=== PATIENT | male | born 1950 | race Caucasian/White ===

== ENCOUNTER 2017-05-25 10:10 | Observation (INO) | payer OTHER ==
[2017-05-25] VITALS (11 sets, daily range): BP systolic 133–181; BP diastolic 67–82; PULSE 66–88; RESP 16–18; TEMP 98.7–99.1; O2SAT 95–98
[~2017-05-25] VITALS: Ht 165.1 cm; Wt 68.0 kg
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
[2017-05-25 11:09] LABS: AUTOMATED NEUTROPHIL # 2.6 TH/MM3 (1.8-7.7); BASOPHIL % 1.2 % (0.0-2.0); EOSINOPHIL # 0.1 TH/MM3 (0-0.4); EOSINOPHIL % 3.3 % (0.0-4.0); HEMATOCRIT 40.3 % (39.0-51.0); LYMPH % 22.6 % (9.0-44.0); LYMPHOCYTE # 0.9 TH/MM3 (1.0-4.8); MEAN CELL VOLUME 91.9 FL (80.0-100.0); MEAN CORPUSCULAR HEMOGLOBIN 31.9 PG (27.0-34.0); MEAN CORPUSCULAR HGB CONC 34.7 % (32.0-36.0); MEAN PLATELET VOLUME 8.3 FL (7.0-11.0); MONO % 9.7 % (0.0-8.0); MONOCYTE # 0.4 TH/MM3 (0-0.9); NEUT % 63.2 % (16.0-70.0); PLATELET COUNT 171 TH/MM3 (150-450); RED BLOOD COUNT 4.38 MIL/MM3 (4.50-5.90); RED CELL DISTRIBUTION WIDTH 12.7 % (11.6-17.2); WHITE BLOOD COUNT 4.1 TH/MM3 (4.0-11.0)
[2017-05-25] MEDS ORDERED: BLOOD PRESSURE (11:09)
[2017-05-25 11:22] LABS: PROTHROMBIN TIME - PATIENT 10.1 SEC (9.8-11.6)
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
[2017-05-25 11:35] LABS: ALBUMIN 3.8 GM/DL (3.4-5.0); ALT (GPT) 17 U/L (12-78); AST (GOT) 17 U/L (15-37); BICARBONATE 22.8 MEQ/L (21.0-32.0); BLOOD UREA NITROGEN 23 MG/DL (7-18); CALCIUM 8.8 MG/DL (8.5-10.1); CHLORIDE 106 MEQ/L (98-107); CREATININE 1.05 MG/DL (0.60-1.30); GLOMERULAR FILTRATION RATE 70 ML/MIN (>89); GLUCOSE,RANDOM 105 MG/DL (74-106); MAGNESIUM 1.9 MG/DL (1.5-2.5); SODIUM (NA) 138 MEQ/L (136-145)
[2017-05-25 11:39] LABS: ALKALINE PHOSPHATASE 63 U/L (45-117); TOTAL BILIRUBIN ADULT 0.8 MG/DL (0.2-1.0); TOTAL PROTEIN 7.4 GM/DL (6.4-8.2); TROPONIN I LESS THAN 0.02 NG/ML (0.02-0.05)
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
[2017-05-25] MEDS ORDERED: GADODIAMIDE PF 287 MG/ML 5 ML VIAL (for RAD MRI) IVCONTRAST ONE (12:53)
[2017-05-25] MEDS ORDERED: SODIUM CHLORIDE 0.9% FLUSH 10 ML FLUSH IV FLUSH PRN (13:00)
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
--- NOTE | 2017-05-25 15:28 | RADRPT ---
EXAM DATE/TIME: 05/25/2017 14:14 [facility] COMPARISON: No previous studies available for comparison. INDICATIONS : Syncope. MEDICAL HISTORY : Hypertension. SURGICAL HISTORY : None. ENCOUNTER: Initial ACUITY: 1 day PAIN SCORE: 0/10 LOCATION: Bilateral neck PEAK SYSTOLIC VELOCITIES (cm/sec): ICA/CCA RATIO: Right: 1.0 Left: 0.9 ICA: Right: 73.7 Left: 68.6 CCA: Right: 75.7 Left: 74.2 ECA: Right: 97.1 Left: 96.9 VERTEBRAL: Right: 69.4 antegrade Left: 58.9 antegrade Elevated flow velocities and ICA/CCA ratios have been found to correlate with increased degrees of vessel stenosis, calculated as percentage of diameter relative to a normal segment of distal ICA/CCA FINDINGS: RIGHT CAROTID: Dense atherosclerotic calcification in the carotid bulb. The waveforms are within normal limits. LEFT CAROTID: Dense atherosclerotic calcification in the carotid bulb. The waveforms are within normal limits. VERTEBRAL ARTERIES: Antegrade flow is seen in both vertebral arteries. MISCELLANEOUS: None. CONCLUSION: 1. Dense sclerotic calcification in both carotid bulbs. 2. However, no sonographic or Doppler findings of a hemodynamically significant stenosis. Antegrade f low in both vertebral arteries. Horacio Og MD on May 25, 2017 at 15:23 Board Certified Radiologist. This report was verified electronically.
[2017-05-25] MEDS ORDERED: cloNIDine HCL 0.1 MG TAB PO PRN (17:00)
[2017-05-25] MEDS: SODIUM CHLOR 0.9% 1000 ML INJ 1,000 ML IV SCH (18:05)
[2017-05-25 20:10] LABS: FOLATE 18.3 NG/ML (3.1-17.5); FREE T4 1.18 NG/DL (0.76-1.46)
[2017-05-25] MEDS: SODIUM CHLORIDE 0.9% FLUSH 10 ML FLUSH IV FLUSH SCH (21:00)
--- NOTE | 2017-05-25 22:24 | RADRPT ---
EXAM DATE/TIME: 05/25/2017 21:36 [facility] COMPARISON: No previous studies available for comparison. INDICATIONS : CVA. MEDICAL HISTORY : None. SURGICAL HISTORY : Lip sx to remove tumor. ENCOUNTER: Initial ACUITY: 1 day PAIN SCORE: 1/10 LOCATION: Bilateral cranial Please note a normal MRA of the brain does not entirely exclude the possibility of a small aneurysm, nor the possibility of distal intracranial vessel disease. TECHNIQUE: 3D time of flight MRA was performed. Source images, multiplanar STS MIP, and 3D volume MIP reconstru ctions were reviewed. FINDINGS: There is excellent visualization of the major intracranial arteries out to the second-order branch ve ssels. There is no evidence for aneurysm, vessel truncation or stenosis, and no evidence for vascula r malformation. CONCLUSION: Normal examination for a patient of this age. Victoriano Thibodeaux MD on May 25, 2017 at 22:19 Board Certified Radiologist. This report was verified electronically.
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
--- NOTE | 2017-05-25 23:38 | RADRPT ---
EXAM DATE/TIME: 05/25/2017 21:36 [facility] COMPARISON: No previous studies available for comparison. INDICATIONS : CVA. CONTRAST: 20 cc Omniscan (gadodiamide) IV MEDICAL HISTORY : None. SURGICAL HISTORY : Lip sx to remove tumor. ENCOUNTER: Initial ACUITY: 1 day PAIN SCORE: 2/10 LOCATION: Bilateral cranial Percent stenosis is calculated using the diameter of the stenotic region over the diameter of the nor mal distal internal carotid artery. TECHNIQUE: Bolus infused MRA of the extracranial circulation was performed using a neurovascular coil. Post pro cessing was performed including rotating subvolume maximum intensity projections of each carotid catalina ry, rotating full volume maximum intensity projections of both carotid arteries, sagittal and coronal sliding thin slab reformations of each carotid artery, and left oblique sliding thin slab reformatio n through the aortic arch to include the origin of the arch branch vessels. FINDINGS: AORTIC ARCH: There is a three vessel origin of the great vessels from the aorta. No evidence of ostial narrowing. RIGHT CAROTID: The common carotid artery is intact. The carotid bulb has a normal configuration without ulceration or narrowing. The internal carotid artery lumen is smooth without stenosis. The external carotid ar kandice is intact. LEFT CAROTID: The common carotid artery is intact. The carotid bulb has a normal configuration without ulceration or narrowing. The internal carotid artery lumen is smooth without stenosis. The external carotid ar kandice is intact. VERTEBRALS: Vertebral arteries are patent bilaterally, right side dominant. The distal left vertebral artery beyo nd the PICA origin is quite diminutive. CONCLUSION: Unremarkable study Janak Solis MD on May 25, 2017 at 23:34 Board Certified Radiologist. This report was verified electronically.
[2017-05-26 04:09] VITALS: BP 134/69; PULSE 65; RESP 17; TEMP 98.2; O2SAT 96
[2017-05-26 07:05] LABS: AUTOMATED NEUTROPHIL # 3.4 TH/MM3 (1.8-7.7); BASOPHIL % 0.6 % (0.0-2.0); EOSINOPHIL # 0.2 TH/MM3 (0-0.4); EOSINOPHIL % 3.8 % (0.0-4.0); HEMATOCRIT 38.9 % (39.0-51.0); HEMOGLOBIN 13.2 GM/DL (13.0-17.0); LYMPH % 19.5 % (9.0-44.0); MEAN CORPUSCULAR HEMOGLOBIN 31.6 PG (27.0-34.0); MEAN CORPUSCULAR HGB CONC 33.9 % (32.0-36.0); MONOCYTE # 0.5 TH/MM3 (0-0.9); NEUT % 66.1 % (16.0-70.0); PLATELET COUNT 166 TH/MM3 (150-450); RED BLOOD COUNT 4.18 MIL/MM3 (4.50-5.90); RED CELL DISTRIBUTION WIDTH 12.4 % (11.6-17.2); WHITE BLOOD COUNT 5.1 TH/MM3 (4.0-11.0)
--- NOTE | 2017-05-26 07:17 | HHI.PR ---
Subjective Remarks no new spells Objective Vital Signs Date Time Temp Pulse Resp B/P (MAP) Pulse Ox O2 Delivery O2 Flow Rate FiO2 05/26/17 04:09 98.2 65 17 134/69 (90) 96 05/25/17 23:43 99.1 66 17 133/67 (89) 95 05/25/17 23:02 70 05/25/17 20:53 98.7 75 18 134/75 (94) 95 05/25/17 17:24 84 05/25/17 15:49 98.7 82 16 156/70 (98) 96 150/71 (97) 146/70 (95) 05/25/17 15:15 05/25/17 15:00 74 16 162/77 (105) 97 Room Air 05/25/17 13:00 74 16 153/70 (97) 97 Room Air 05/25/17 12:00 74 16 181/81 (114) 98 Room Air 05/25/17 11:11 75 16 133/82 (99) 98 Room Air 05/25/17 10:21 98 Room Air 05/25/17 10:21 18 98 Room Air 05/25/17 10:18 98.7 88 16 139/77 (97) 97 I/O 05/25/17 05/25/17 05/25/17 05/26/17 05/26/17 05/26/17 07:00 15:00 23:00 07:00 15:00 23:00 Output Total 800 ml Balance -800 ml Output Urine Total 800 ml Result Diagram: 05/26/17 0645 05/25/17 1015 Objective Remarks awke alert ox3 nl exam Assessment and Plan Assessment and Plan imp TGA mri nl mra cow and neck neg he is r vert dominant eeg nl if echo nl can dc and fu office Vamsi Gordon MD May 26, 2017 07:17
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
[2017-05-26 07:30] VITALS: PULSE 58
[2017-05-26 07:37] LABS: BICARBONATE 26.2 MEQ/L (21.0-32.0); CALCIUM 8.7 MG/DL (8.5-10.1); CREATININE 1.01 MG/DL (0.60-1.30)
[2017-05-26 07:42] VITALS: BP_SYST 127; BP_SYST 144; BP_SYST 146; BP_DIAS 65; BP_DIAS 68; BP_DIAS 76; PULSE 68; RESP 16; TEMP 97.5; O2SAT 95
--- NOTE | 2017-05-26 08:00 | MG ---
cc: Vamsi Gordon MD DESCRIPTION: Syncopal event, spike, transient global amnesia. A 8-9 Hz, 60 microvolt symmetric and normal posterior rhythm is seen. Recording overall is synchronous and symmetric. Photic stimulation is performed without significant posterior driving. Hyperventilation was performed without significant change in the background. IMPRESSION: A normal awake EEG. No evidence for focal or diffuse abnormality. MD RACHEL Ashton/PETER , 06:13 PM , 06:29 PM
[2017-05-26] MEDS: SODIUM CHLOR 0.9% 1000 ML INJ 1,000 ML IV SCH (09:00)
[2017-05-26] MEDS: SODIUM CHLORIDE 0.9% FLUSH 10 ML FLUSH IV FLUSH SCH (09:00)
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
--- NOTE | 2017-05-26 13:32 | HHI.DCPOC ---
Discharge Care Plan Diagnosis: (1) Syncope (2) Concussion (3) Amnesia (retrograde) (4) Head injury due to trauma Goals to Promote Your Health * To prevent worsening of your condition and complications * To maintain your health at the optimal level Directions to Meet Your Goals Take your medications as prescribed Follow your dietary instruction Follow activity as directed Keep your appointments as scheduled Take your immunizations and boosters as scheduled If your symptoms worsen call your PCP, if no PCP go to Urgent Care Center or Emergency Room Smoking is Dangerous to Your Health. Avoid second hand smoke Call the 24-hour hour crisis hotline for domestic abuse at Tammy Bell PA-C May 26, 2017 1:32 pm
[2017-05-26 14:58] VITALS: BP 153/73; PULSE 64; RESP 16; TEMP 98.1; O2SAT 96
--- NOTE | 2017-05-26 16:10 | EKG ---
Date Performed: 05/25/2017 Time Performed: 10:20:35 PTAGE: 66 years EKG: Sinus rhythm NORMAL ECG NO PREVIOUS TRACING DOCTOR: Celestine Saavedra Interpretating Date/Time 05/26/2017 16:07:56
--- NOTE | 2017-05-26 16:24 | ECHRPT ---
Indication: Syncope CONCLUSIONS The left ventricular systolic function is normal with an estimated ejection fraction in the range of 55-60%. Mild concentric left ventricular hypertrophy. Trace mitral valve regurgitation. [id number] aortic valve regurgitation. There is mild tricuspid valve regurgitation. Trivial pulmonary valve regurgitation. BP: 153 / 70 HR: 60 Rhythm: Sinus MEASUREMENTS (Male / Female) Normal Values Technical Quality:Fair 2D ECHO LV Diastolic Diameter PLAX 4.8 cm 4.2 - 5.9 / 3.9 - 5.3 cm LV Systolic Diameter PLAX 3.1 cm IVS Diastolic Thickness 1.3 cm 0.6 - 1.0 / 0.6 - 0.9 cm LVPW Diastolic Thickness 1.1 cm 0.6 - 1.0 / 0.6 - 0.9 cm LV Relative Wall Thickness 0.5 RV Internal Dim ED PLAX 3.7 cm LVOT Diameter 2.2 cm LA Systolic Diameter LX 4.0 cm 3.0 - 4.0 / 2.7 - 3.8 cm M-MODE Aortic Root Diameter MM 3.2 cm LA Systolic Diameter MM 3.5 cm LA Ao Ratio MM 1.1 AV Cusp Separation MM 1.7 cm DOPPLER AV Peak Velocity 238.0 cm/s AV Peak Gradient 22.7 mmHg AV Mean Gradient 9.0 mmHg AV Velocity Time Integral 41.4 cm AI Peak Velocity 387.0 cm/s AI Peak Gradient 59.9 mmHg AI Pressure Half Time 571.0 ms LVOT Peak Velocity 124.0 cm/s LVOT Peak Gradient 6.2 mmHg LVOT Velocity Time Integral 26.6 cm LVOT Cardiac Index 3426.0 cm/minm AV Area Cont Eq vti 2.4 cm AV Area Cont Eq pk 2.0 cm MV Area PHT 3.2 cm Mitral E Point Velocity 73.2 cm/s Mitral A Point Velocity 76.2 cm/s Mitral E to A Ratio 1.0 LV E' Lateral Velocity 7.8 cm/s Mitral E to LV E' Lateral Ratio 9.4 LV E' Septal Velocity 7.3 cm/s Mitral E to LV E' Septal Ratio 10.0 TR Peak Velocity 207.0 cm/s TR Peak Gradient 17.1 mmHg Right Atrial Pressure 10.0 mmHg Pulmonary Artery Systolic Pressu 27.1 mmHg Right Ventricular Systolic Press 27.1 mmHg FINDINGS LEFT VENTRICLE The left ventricular systolic function is normal with an estimated ejection fraction in the range of 55-60%. No regional wall motion abnormalities are present. Mild concentric left ventricular hypertrophy. Normal left ventricular size. RIGHT VENTRICLE Normal right ventricular size and systolic function. LEFT ATRIUM The left atrial size is upper limits of normal. RIGHT ATRIUM The right atrial size is normal. ATRIAL SEPTUM Normal atrial septal thickness without atrial level shunting by limited color doppler interrogation. AORTA The aortic root and proximal ascending aorta are normal in size on limited imaging. MITRAL VALVE Structurally normal mitral valve. Mild mitral annular calcification. No mitral valve stenosis. Trace mitral valve regurgitation. AORTIC VALVE Trileaflet aortic valve. Aortic valve sclerosis is present. [id number] aortic valve regurgitation. Eccentric aortic regurgitation jet directed at the mitral valve. TRICUSPID VALVE Structurally normal tricuspid valve. There is mild tricuspid valve regurgitation. The estimated pulmonary arterial pressure is 27.1 mmHg. PULMONARY VALVE The pulmonary valve is not well visualized. Trivial pulmonary valve regurgitation. VESSELS The inferior vena cava is normal in size. PERICARDIUM No pericardial effusion. Peterson Lorenzo DO (Electronically Signed) Final Date:26 May 2017 16:23
--- NOTE | 2017-05-27 13:29 | HM ---
Date Performed: 05/26/2017 Time Performed: 08:01:00 HOOKUP DATE: 05/26/17 08:01:00 AM Tue ANALYSIS START TIME: 05/26/2017 8:06:00 AM ANALYSIS END TIME: 05/27/2017 7:15:16 AM PATIENT AGE: 66 PATIENT HEIGHT PATIENT WEIGHT DRUG LIST PATIENT DIAGNOSIS: syncope TEST NARRATIVE: The patient's average heart rate was 62 BPM. No episodes of tachycardia wer e noted. Heart rates less than 50 BPM were noted 12% of the time. No pauses exceeding 2.0 second s were noted. 77 ventricular ectopics, which represented < 1% of the total beat count, were noted . The highest ventricular ectopic frequency occurred from 12:00 PM to 01:00 PM Tue. During this mir e 8 VE(s) occurred. Ventricular ectopics were observed as 75 isolated beat(s) and as 1 couplet(s). No runs were noted. 5 supraventricular ectopics, which represented < 1% of the total beat count, were noted. The highest supraventricular ectopic frequency occurred from 07:00 PM to 08:00 PM Tue. During this time 2 SVE(s) occurred. No episodes of ST depression (defined as -1.0 mm or more) wer e noted in channel 1. No episodes of ST depression (defined as -1.0 mm or more) were noted in channe l 2. No episodes of ST depression (defined as -1.0 mm or more) were noted in channel 3. TEST INTERPRETATION: Sinus rhythm RARE PACs OCCASIONAL PVCs IN SINGLETS Signed by : Maksim Lin
[2017-05-27 13:53] LABS: ANA SCREEN NEG (NEG)
== END 2017-05-26 18:19 | disposition home or self-care (01) ==
LOC: NEPC 10:10 → NEDA 12:52 → NEPHCDU 15:30
PROVIDERS: ADMIT Internal Medicine; ATTEND Internal Medicine
DX: S06.0X9A Concussion with loss of consciousness of unspecified duration, initial encounter (principal); S00.81XA Abrasion of other part of head, initial encounter; S60.512A Abrasion of left hand, initial encounter; S60.511A Abrasion of right hand, initial encounter; R41.2 Retrograde amnesia; R53.1 Weakness; I10 Essential (primary) hypertension; V18.4XXA Pedal cycle driver injured in noncollision transport accident in traffic accident, initial encounter; Y93.55 Activity, bike riding; Z87.891 Personal history of nicotine dependence
CPT/HCPCS: 70450; 70544; 70548; 70553; 71046; 72125; 80048; 80053; 80307; 82550; 82607; 82746; 83735; 84425; 84439; 84443; 84484; 85025; 85610; 85652; 85730; 86038; 86592; 93005; 93225; 93226; 93306; 93880; 95819; 96360; 96361; 99285; A9579; G0378; J7030